=== PATIENT | male | born 1990 | race Caucasian/White ===

== ENCOUNTER → 2022-09-04 16:39 | Outpatient (BNVA) | payer MEDICAID, SELFPAY | PROVIDERS: PCP Nurse Practitioner Family; Visit Provider Nurse Practitioner Family | DX: G47.00 Insomnia, unspecified (principal); F41.9 Anxiety disorder, unspecified; F32.A Depression, unspecified; E66.9 Obesity, unspecified; K04.7 Periapical abscess without sinus; B35.1 Tinea unguium; L20.9 Atopic dermatitis, unspecified; I10 Essential (primary) hypertension | CPT/HCPCS: 80053; 80061; 84443 ==

== ENCOUNTER → 2022-10-04 08:16 | Outpatient (BNVA) | payer MEDICAID, SELFPAY | PROVIDERS: PCP Nurse Practitioner Family; Visit Provider Podiatrist Foot & Ankle Surgery | DX: L60.0 Ingrowing nail (principal) | CPT/HCPCS: 11750; 99203 ==

== ENCOUNTER 2025-05-05 20:00 | Outpatient (CLI) | payer OTHER, SELFPAY | END 2025-05-05 20:01 | disposition home or self-care (01) | LOC: SLEEP 20:01 | PROVIDERS: PCP Nurse Practitioner Family; Referring Provider Family Medicine; Visit Provider Internal Medicine Pulmonary Disease | DX: G47.33 Obstructive sleep apnea (adult) (pediatric) (principal) | CPT/HCPCS: 95811 ==